=== PATIENT | female | born 1995 | race Asian ===

== ENCOUNTER 2017-07-20 19:24 | Emergency (ER) | payer OTHER ==
[~2017-07-20] VITALS: Ht 149.9 cm; Wt 74.8 kg
[~2017-07-20 19:24] MED LIST: KETO10TA34 PO; MINOCYCLINE100 M1 OR
[2017-07-20 21:41] VITALS: BP 1138/75; TEMP 98.4
== END 2017-07-20 21:42 | disposition home or self-care (01) ==
LOC: ED 19:24
DX: M94.0 Chondrocostal junction syndrome [Tietze] (principal)
CPT/HCPCS: 36415; 99283

== ENCOUNTER 2018-07-27 18:04 | Outpatient (CLI) | payer OTHER | END 2018-07-27 18:16 | disposition short-term general hospital (02) | LOC: AMB 18:04 | DX: R10.32 Left lower quadrant pain (principal); V43.63XA Car passenger injured in collision with pick-up truck in traffic accident, initial encounter; Y93.89 Activity, other specified; Y92.89 Other specified places as the place of occurrence of the external cause | CPT/HCPCS: A0425; A0429 ==

== ENCOUNTER 2018-07-27 18:21 | Emergency (ER) | payer OTHER ==
[~2018-07-27] VITALS: Ht 149.9 cm; Wt 83.5 kg
[2018-07-27 19:27] VITALS: BP 119/71; TEMP 99.1
== END 2018-07-27 19:27 | disposition home or self-care (01) ==
LOC: ED 18:21
DX: Z04.1 Encounter for examination and observation following transport accident (principal); Z33.1 Pregnant state, incidental
CPT/HCPCS: 99282

== ENCOUNTER 2022-12-28 16:43 | Emergency (ER) | payer OTHER ==
[~2022-12-28] VITALS: Ht 149.9 cm; Wt 83.0 kg
[2022-12-28 17:00] VITALS: TEMP 98.7
[2022-12-28 17:56] LABS: PLATELET COUNT 427 K/uL (152-353)
[2022-12-28 18:03] LABS: POTASSIUM 3.3 mmol/L (3.6-5.2)
[2022-12-28 19:10] VITALS: BP 123/84
== END 2022-12-28 19:10 | disposition home or self-care (01) ==
LOC: ED 16:43
PROVIDERS: Emergency Medicine Emergency Medical Services
DX: N39.0 Urinary tract infection, site not specified (principal); I10 Essential (primary) hypertension; E87.6 Hypokalemia
CPT/HCPCS: 80048; 81000; 85027; 87077; 87086; 87088; 87186; 93005; 99283

== ENCOUNTER 2023-03-22 19:08 | Emergency (ER) | payer OTHER ==
[~2023-03-22] VITALS: Ht 149.9 cm; Wt 83.5 kg
[2023-03-22 19:13] VITALS: BP 147/100; TEMP 98.7
== END 2023-03-22 20:38 | disposition home or self-care (01) ==
LOC: ED 19:08
DX: N39.0 Urinary tract infection, site not specified (principal)
CPT/HCPCS: 81000; 87086; 87088; 87490; 87590; 99283; J0696; J2001